=== PATIENT | male | born 1970 | race Caucasian/White ===

== ENCOUNTER → 2021-01-05 | Outpatient (CLI) | payer OTHER ==
[~2021-01-05] VITALS: Ht 180.3 cm; Wt 111.1 kg
[~2021-01-05] MED LIST: albuterol 2.5 MG/3 ML nebule NEB ONE
== END | disposition home or self-care (01) ==
LOC: RT 08:24
DX: J61 Pneumoconiosis due to asbestos and other mineral fibers (principal); M47.819 Spondylosis without myelopathy or radiculopathy, site unspecified
CPT/HCPCS: 71046; 94060; 94760